=== PATIENT | female | born 1980 | race Caucasian/White ===

== ENCOUNTER → 2021-11-21 09:15 | Outpatient (CLI) | payer OTHER, SELFPAY ==
--- NOTE | ~2021-11-21 | MR_ITS ---
EXAMINATION: MR ankle LT wo con DATE: 11/21/2021 10:20 INDICATION: Left heel pain post plantar fasciotomy TECHNIQUE: Magnetic resonance imaging (MRI) of the left ankle was performed without intravenous contr ast. Sequences included sagittal, coronal, and axial proton-density weighted fast spin echo without a nd with fat saturation. COMPARISON: None. FINDINGS: Medial ankle ligaments: Deep and superficial deltoid ligaments as well as the spring ligament are normal. Lateral ankle ligaments: The anterior and posterior inferior tibiofibular ligaments are normal. The anterior talofibular, calc aneofibular and posterior talofibular ligaments are normal. Tendons: Achilles tendon is normal. The peroneus longus and brevis tendons are normal. The tibialis anterior a nd extensor hallucis longus and extensor digitorum longus tendons are normal. The tibialis posterior, flexor digitorum longus and flexor hallucis longus tendons are normal. Plantar fascia: There is prominent thickening of the central and lateral components of the plantar aponeurosis near t he calcaneal origin with linear likely postoperative scarring seen in the adjacent medial side of the plantar fat pad consistent with provided history of prior plantar fasciotomy. No significant surroun ding edema to suggest significant ongoing plantar fasciitis. Small plantar calcaneal spur. Bones/other: Bone alignment is normal. Bone island at the posterior tuberosity of the calcaneus. Marrow signal is normal with no reactive edema, fracture or pathologic marrow replacing process. Joint spaces are norm al. Raghavendra Tarsi and tarsal tunnel are unremarkable. Fluid: Physiologic amount of fluid in the joint spaces. IMPRESSION: 1. Thickening of the proximal plantar aponeurosis without significant surrounding edema consistent wi th chronic enthesopathy and/or scarring related to reported prior plantar fasciotomy. Reviewed, dictated and finalized at location A. [employer] IMPRESSION: 1. Thickening of the proximal plantar aponeurosis without significant surroundi ng edema consistent with chronic enthesopathy and/or scarring related to report ed prior plantar fasciotomy.
== END ==
PROVIDERS: Visit Provider Podiatrist Foot & Ankle Surgery
DX: M25.572 Pain in left ankle and joints of left foot (principal)
CPT/HCPCS: 73721

== ENCOUNTER 2022-08-24 12:52 | Emergency (ER) | payer OTHER, SELFPAY ==
[2022-08-24 13:05] VITALS: BP 107/71; PULSE 70; RESP 18; TEMP 36.2; O2SAT 99
--- NOTE | 2022-08-24 13:41 | ED.URI ---
HPI - URI/Sore Throat General Chief Complaint: Upper Respiratory Infection Stated Complaint: Sore Throat,Bilateral Ear Irritation,Congestion, Time Seen by Provider: 08/24/22 13:41 Source: patient and RN notes reviewed Mode of arrival: ambulatory Limitations: no limitations History of Present Illness HPI Narrative: 42 year female presenting for complaint of sore throat, bilateral ear pain, sinus congestion since yesterday. She endorses cough started about a week ago. She denies shortness of breath wheezing, vomiting diarrhea, fevers or chills. She endorses her children are sick. She has been taking Mucinex, Tylenol ibuprofen for symptoms without any relief. MD elicited complaint: cough Related Data Allergies Allergy/AdvReac Type Severity Reaction Status Date / Time Penicillins Allergy Unknown CHILD Unverified 11/27/14 10:53 Review of Systems Review of Systems: ROS per HPI Exam Narrative: GENERAL: Ill-appearing, nontoxic EYES: PERRLA, conjunctivae clear ENT: Mucous membranes moist. TMs pearly patterson with dull light reflex bilaterally; no tragal tenderness. Oropharynx erythematous without lesions or exudate, no drooling, no hoarseness, no trismus, uvula midline. CHEST: Clear to auscultation, breath sounds equal. HEART: Regular rate and rhythm. SKIN: Warm, dry, no rash. NEURO: Alert and oriented x3. PSYCH: Normal mood and affect Course Course Emergency Course: Patient is aware of diagnosis, understands and agrees to treatment plan. Anticipatory guidance given. Patient agrees to follow-up as directed and is aware of reasons to seek care at the emergency department. Portions of this record may have been created with voice recognition software Level of Care: Express Care Visit Vital Signs Vital signs: Vital Signs Temperature 97.2 F L 08/24/22 13:05 Pulse Rate 70 08/24/22 13:05 Respiratory Rate 18 08/24/22 13:05 Blood Pressure 107/71 08/24/22 13:05 Pulse Oximetry 99 08/24/22 13:05 Oxygen Delivery Room Air 08/24/22 13:05 Temperature 97.2 F L 08/24/22 13:05 Pulse Rate 70 08/24/22 13:05 Respiratory Rate 18 08/24/22 13:05 Blood Pressure 107/71 08/24/22 13:05 Pulse Oximetry 99 08/24/22 13:05 Oxygen Delivery Room Air 08/24/22 13:05 reviewed MDM - URI/Sore Throat MDM Narrative Medical decision making narrative: COVID, strep, flu negative. Results reviewed with patient. Advised supportive measures and signs/symptoms to go to the ER. Pt is appropriate for outpt treatment and f/u. Differential Diagnosis Differential diagnosis: Likely upper respiratory infection, sinusitis and viral infection Lab Data Labs: Influenza A Screen Negative Reference Range: Negative Influenza B Screen Negative Reference Range: Negative Strep Screen Presumptive Negative *(Reference Range: Negative)* Discharge Plan Discharge Clinical Impression: Upper respiratory infection Patient Disposition: Home, Self-Care Condition: Stable Instructions: Upper Respiratory Infection (ED) Additional Instructions: COVID and flu negative Rapid strep swab was negative today You will be notified in a few days if the culture comes back positive for strep, and appropriate antibiotics will be called in at that time. if symptoms are due to a viral illness, it is not treated with antibiotics. Viral symptoms can be present for up to 10-14 days. Recommend Flonase spray and Zyrtec for sinus congestion Cough syrup may cause drowsiness; avoid driving or take it at night time. Tylenol every 8 hours as needed for pain/fever Soft foods, cool liquids, warm tea. Gargle with warm saltwater twice a day. Chloraseptic spray and throat lozenges. Rest and stay hydrated. --Follow up with your PCP if symptoms are not improving, or
== END 2022-08-24 14:35 | disposition home or self-care (01) ==
PROVIDERS: Emergency Provider Nurse Practitioner Family
DX: J06.9 Acute upper respiratory infection, unspecified (principal); Z20.822 Contact with and (suspected) exposure to COVID-19
CPT/HCPCS: 87081; 87426; 87804; 87880; 99213; C9803; G0463

== ENCOUNTER 2023-09-17 13:17 | Emergency (ER) | payer OTHER, SELFPAY ==
[2023-09-17 13:50] VITALS: BP 93/53; PULSE 59; RESP 16; TEMP 36.2; O2SAT 100
--- NOTE | 2023-09-17 14:40 | ED.URI ---
HPI - URI/Sore Throat General Chief Complaint: Upper Respiratory Infection Stated Complaint: headache,congestion,cough Time Seen by Provider: 09/17/23 14:33 Source: patient and RN notes reviewed Mode of arrival: ambulatory Limitations: no limitations History of Present Illness HPI Narrative: 43-year-old female presented for complaint of cough, nasal congestion, headache, and onset 3 days. Denies shortness of breath, wheezing, nausea, vomiting or fever. Denies sick contacts. Taking Sudafed. MD elicited complaint: cough Related Data Home Medications Medication Instructions Recorded Confirmed dextroamphetamine-amphetamine ER 10 mg PO BID 09/17/23 09/17/23 10 mg 24hr capsule,extend release spironolactone 50 mg tablet 50 mg PO DAILY 09/17/23 09/17/23 Allergies Allergy/AdvReac Type Severity Reaction Status Date / Time Penicillins Allergy Unknown CHILD Verified 09/17/23 14:21 Review of Systems Review of Systems: CONSTITUTIONAL: Endorses malaise, denies chills, sweats, fever EYES: Denies visual changes, redness, or discharge ENT: Reports rhinorrhea, congestion, sore throat CARDIOVASCULAR: Denies chest pain, palpitations, edema RESPIRATORY: Reports cough, post nasal drainage. Denies dyspnea GASTROINTESTINAL: Denies abdominal pain, nausea, vomiting, diarrhea SKIN: Denies rash or itching MUSCULOSKELETAL: Denies myalgia NEUROLOGIC: Reports headache PMFSH Past Medical History Medical History (Updated 09/17/23 @ 15:01 by Pat Soares, INDIRA) Narcolepsy Exam Narrative: GENERAL: Mildly ill-appearing, nontoxic no acute distress. EYES: conjunctivae clear ENT: Mucous membranes moist. TMs pearly patterson with dull light reflex bilaterally; no tragal tenderness. Oropharynx mildly erythematous without lesions or exudate, no drooling, no hoarseness, no trismus, uvula midline. No tripod positioning, muffled voice, soft palate or pharyngeal wall bulging NECK: Supple. No lymphadenopathy CHEST: Clear to auscultation, breath sounds equal. No wheezing, rhonchi, rales, or stridor. No respiratory distress, speaks in full sentences. HEART: Regular rate and rhythm. No murmur heard. SKIN: Warm, dry NEURO: Alert and oriented x3. PSYCH: Normal mood and affect Course Course Emergency Course: Patient is aware of diagnosis, understands and agrees to treatment plan. Anticipatory guidance given. Patient agrees to follow-up as directed and is aware of reasons to seek care at the emergency department. Portions of this record may have been created with voice recognition software Level of Care: Express Care Visit Vital Signs Vital signs: Vital Signs Temperature 97.2 F L 09/17/23 13:50 Pulse Rate 59 L 09/17/23 13:50 Respiratory Rate 16 09/17/23 13:50 Blood Pressure 93/53 L 09/17/23 13:50 Pulse Oximetry 100 09/17/23 13:50 Oxygen Delivery Room Air 09/17/23 13:50 Temperature 97.2 F L 09/17/23 13:50 Pulse Rate 59 L 09/17/23 13:50 Respiratory Rate 16 09/17/23 13:50 Blood Pressure 93/53 L 09/17/23 13:50 Pulse Oximetry 100 09/17/23 13:50 Oxygen Delivery Room Air 09/17/23 13:50 reviewed MDM - URI/Sore Throat MDM Narrative Medical decision making narrative: Results of POS COVID, neg strep reviewed with patient. Discussed physical exam findings. Advised supportive measures and signs/symptoms to go to the ER. Pt is appropriate for outpt treatment and f/u. Differential Diagnosis Differential diagnosis: Likely upper respiratory infection, otitis media, sinusitis, viral infection, bronchitis, influenza and pharyngitis Lab Data Labs: Lab Results 09/17/23 Range/Units 14:40 POC SARS CoV-2 Ag Positive (Negative) Strep Screen Presumptive Negative *(Reference Range: Negative)* Discharge Plan Discharge Clinical Impression: COVID-19 Patient Disposition: Home, Self-Care Condition: Stable Instructions:
== END 2023-09-17 15:04 | disposition home or self-care (01) ==
PROVIDERS: Emergency Provider Nurse Practitioner Family
DX: U07.1 COVID-19 (principal); G47.419 Narcolepsy without cataplexy
CPT/HCPCS: 87081; 87426; 87880; 99213; C9803; G0463

== ENCOUNTER 2024-11-22 10:13 | Emergency (ER) | payer OTHER, SELFPAY ==
--- OUTSIDE RECORDS SUMMARY | 2024-11-22 10:17 | XMS_ITS | Continuity of Care Document ---
Author Organization [facility] Address [facility] [place] [address] Care Team Providers Care Nursery Hand Name Role Phone Juan Maurer MD Primary Care Provider [phone] Encounters Date Type Department Care Team Description 03/03/2023 Travel 03/03/2023 6:42 PM CDT - 03/03/2023 9:16 PM CDT Emergency [facility] Emergency Room [address] [place] [address] Lakeshia Kirby MD Back Pain Discharge Disposition: Home or Self Care (Routine Discharge) 07/25/2022 Travel 07/25/2022 8:53 AM CDT - 07/25/2022 9:45 AM CDT Emergency [facility] Emergency Room [id number] [place] [id number] Sherman Womack PA Sore Throat; Earache (bilateral) Discharge Disposition: Home or Self Care (Routine Discharge) 01/26/2021 Travel 01/26/2021 9:14 AM CDT - 01/26/2021 11:59 PM CDT Hospital Encounter [facility] [id number] [place] [phone] Nehemiah Duarte Jr., Sybil Donohue, PUMP SERVICER HELPER Plantar Fasciitis Discharge Disposition: Home or Self Care (Routine Discharge) 01/19/2021 Travel 01/19/2021 8:43 AM CDT - 01/19/2021 11:59 PM CDT Hospital Encounter [facility] [address] [place] [address] Adarsh Daurte Jr., Tg Samson, PT Plantar Fasciitis Discharge Disposition: Home or Self Care (Routine Discharge) 01/16/2021 Travel 01/16/2021 8:58 AM CDT - 01/16/2021 11:59 PM CDT Hospital Encounter [facility] [address] [place] [address] Adarsh Duarte Jr., Nehemiah Krishnamurthy Jr., BEE TENDER Abbey Torre, PUMP SERVICER HELPER Pain In Foot Discharge Disposition: Home or Self Care (Routine Discharge) 01/09/2021 Travel 01/09/2021 12:58 PM CDT - 01/09/2021 11:59 PM CDT Hospital Encounter [facility] [address] [place] [address] Isidro Duarte, Nehemiah Krishnamurthy, Tg Coto, PT Plantar Fasciitis Discharge Disposition: Home or Self Care (Routine Discharge) 01/05/2021 Travel 01/05/2021 9:15 AM CDT - 01/05/2021 11:59 PM CDT Hospital Encounter [facility] [address] [place] [address] Nehemiah Duarte Jr., Abbey Moore, PUMP SERVICER HELPER Ankle/foot Pain Discharge Disposition: Home or Self Care (Routine Discharge) 01/02/2021 Travel 01/02/2021 9:15 AM CDT - 01/02/2021 11:59 PM CDT Hospital Encounter [facility] [address] [place] [address] Nehemiah Duarte Jr., Tg Dalton, PT Plantar Fasciitis Discharge Disposition: Home or Self Care (Routine Discharge) 12/29/2020 Travel 12/29/2020 9:15 AM CDT - 12/29/2020 11:59 PM CDT Hospital Encounter [facility] [address] [place] [address] Nehemiah Duarte, Abbey Fuchs, PUMP SERVICER HELPER Ankle/foot Pain Discharge Disposition: Home or Self Care (Routine Discharge) 12/26/2020 Travel 12/26/2020 9:45 AM CDT - 12/26/2020 11:59 PM CDT Hospital Encounter [facility] [address] [place] [address] Nehemiah Duarte, Florence Burleson, PUMP SERVICER HELPER Plantar Fasciitis Discharge Disposition: Home or Self Care (Routine Discharge) 12/22/2020 Travel 12/22/2020 8:45 AM CDT - 12/22/2020 11:59 PM CDT Hospital Encounter [facility] [id number] [place] [address] Nehemiah Duarte, Sybil George, PUMP SERVICER HELPER Plantar Fasciitis Discharge Disposition: Home or Self Care (Routine Discharge) 12/19/2020 Travel 12/19/2020 8:39 AM CDT - 12/19/2020 11:59 PM CDT Hospital Encounter [facility] [id number] [place] [address] Nehemiah Duarte, Tg Coto, PT Plantar Fasciitis Discharge Disposition: Home or Self Care (Routine Discharge) 03/17/2020 Travel 03/17/2020 6:55 AM CDT - 03/17/2020 8:10 AM CDT Emergency [facility] Emergency Room [address] [place] [phone] Chelsie Day MD Ankle Injury (LEFT) Discharge Disposition: Home or Self Care (Routine Discharge) 01/07/2020 Travel 01/07/2020 4:00 PM CDT Office Visit [facility] [address] [place] [address] Kevin Shah MD Headache (fatigue body aches since last week); Fever (Saturday started with fever); Sore Throat (ulcers on throat) 01/07/2020 Telephone [facility] [address] [place] [address] Collin Wolfe MD Sore Throat (had headaches and chills Saturday. T101.1, took tylenol, has not had fever since. now has sore throat,feels like has sores in throat. ) 09/12/2014 Abstract [facility] Emergency Room [address] [place] [address] Anselmo Santana MD 12/12/2013 Abstract [facility] [address] [place] [address] Regine Ulloa MD 06/04/2013 Abstract [facility] Emergency Room [id number] [place] [address] Lenny Arizmendi MD 12/08/2011 Abstract [facility] [id number] [place] [address] Collin Ball MD 06/28/2011 Abstract [facility] 06/25/2011 Abstract [facility] [address] [address] [place] [phone] 04/20/2011 Abstract [facility] Emergency Room [address] [place] [address] Lenny Arizmendi MD Allergies Active Allergy Reactions Criticality Noted Date Comments Penicillins Rash Low 01/07/2020 Medications methylphenidate LA (RITALIN LA) 20 MG 24 hr capsule Take 2 capsules (40 mg total) by mouth every morning. Active Active Problems Problem Noted Date Diagnosed Date Plantar fasciitis 11/01/2020 Family History Medical History Relation Comments Cancer Father Relation Status Comments Father Social History Smoking Status as of 11/22/2024 Tobacco Use Types Packs/Day Years Used Date Smoking Tobacco: Never Assessed Sex and Gender Information Value Date Recorded Sex Assigned at Not on file Legal Sex Female 7:45 PM CDT Gender Identity Not on file Sexual Orientation Not on file Last Filed Vital Signs Vital Sign Reading Time Taken Comments Blood Pressure 110/66 03/03/2023 9:10 PM CDT Pulse 68 03/03/2023 9:10 PM CDT Temperature 36.7 C (98.1 F) 03/03/2023 9:10 PM CDT Respiratory Rate 16 03/03/2023 9:10 PM CDT Oxygen Saturation 97% 03/03/2023 9:10 PM CDT Inhaled Oxygen Concentration - - Weight 74.8 kg (165 lb) 03/03/2023 6:50 PM CDT Height 167.6 cm (5' 6 ) 03/03/2023 6:50 PM CDT Body Mass Index 26.63 03/03/2023 6:50 PM CDT Plan of Treatment Not on file Procedures Procedure Name Priority Date/Time Associated Diagnosis Comments URINE BACTERIA CULTURE Routine 03/03/2023 8:33 PM CDT URINALYSIS, AUTO, COMPLETE STAT 03/03/2023 8:[address] LUMB SPINE WO CON STAT 03/03/2023 8:02 PM CDT CORONAVIRUS (COVID-19) ANTIGEN DIRECT OPTICAL STAT 07/25/2022 9:26 AM CDT RAPID STREP A STAT 07/25/2022 9:06 AM CDT XR ANKLE LT 2V STAT 03/17/2020 7:31 AM CDT SPLINT APPLICATION Routine 03/17/2020 7: 26 AM CDT INFLUENZA A & B Routine 01/07/2020 Fever, unspecified fever cause RAPID STREP A Routine 01/07/2020 Sore throat Results * CULTURE URINE (03/03/2023 8:33 PM CDT) SPEC DESCRIPTION URINE CLEAN CATCH 03/03/2023 8:57 PM CDT [facility] SPECIAL REQUESTS NO SPECIAL REQUEST 03/03/2023 8:57 PM CDT [facility] CULTURE RESULT NO GROWTH 2 DAYS 03/06/2023 7:27 AM CDT [facility] URINE SPECIMEN OBTAINED BY CLEAN CATCH PROCEDURE / Unknown 03/03/2023 8:33 PM CDT 03/03/2023 8:57 PM CDT Lakeshia Kirby MD MICROBIOLOGY - [facility] [employer] Final Result [facility] [address] [place] [address], [place] [phone] [facility] [address] [place] [address], [place] [phone] * (ABNORMAL) URINALYSIS, AUTO, COMPLETE (03/03/2023 8:33 PM CDT) COLOR (U) YELLOW 03/03/2023 8:56 PM CDT [facility] TRANSPARENCY CLEAR 03/03/2023 8:56 PM CDT [facility] SPECIFIC GRAVITY (U) 1.010 1.000 - 1.030 03/03/2023 8:56 PM CDT [facility] U PH 6.5 5.0 - 9.0 03/03/2023 8:56 PM CDT [facility] LEUKOCYTES (U) NEGATIVE NEGATIVE 03/03/2023 8:56 PM CDT [facility] NITRITES NEGATIVE NEGATIVE 03/03/2023 8:56 PM CDT [facility] PROTEIN (U) TRACE(A) NEGATIVE 03/03/2023 8:56 PM CDT [facility] URINE GLUCOSE NEGATIVE NEGATIVE 03/03/2023 8:56 PM CDT [facility] KETONES MG/DL (U) NEGATIVE NEGATIVE 03/03/2023 8:56 PM CDT [facility] BILIRUBIN (U) NEGATIVE NEGATIVE 03/03/2023 8:56 PM CDT [facility] BLOOD (U) NEGATIVE NEGATIVE 03/03/2023 8:56 PM CDT [facility] WBC/HPF 5-10 0 - 5 /HPF 03/03/2023 8:56 PM CDT [facility] RBC/HPF NONE SEEN 0 - 5 /HPF 03/03/2023 8:56 PM CDT [facility] EPI/HPF FEW /HPF 03/03/2023 8:56 PM CDT [facility] CULTURE & SENSITIVITY INDICATED? SPECIMEN SETUP FOR CULTURE 03/03/2023 8:56 PM CDT [facility] CRYSTALS (U) FEW /HPF 03/03/2023 8:56 PM CDT [facility] Comment:AMORPHOUS MATERIAL URINE SPECIMEN OBTAINED BY CLEAN CATCH PROCEDURE / Unknown 03/03/2023 8:33 PM CDT Lakeshia Kirby MD URINE ORDERABLES Final Resu lt Performing Organization Address [facility]/State/ZIP Co de Phone Number [facility] [address] [place] [address], * CT LUMB SPINE WO CON (03/03/2023 8:02 PM CDT) Anatomical Region Laterality Modality Spine Computed Tomogra phy 03/03/2023 8:28 PM CDT Impressions 03/03/2023 8:35 PM CDT IMPRESSION: Mild spinal stenosis at L4-5. Referred By: Interpreted By: Gerson Rowell MD, 03/03/2023 8:28 PM Narrative 03/03/2023 8:35 PM CDT EXAM: CT LUMB SPINE WO CON DATE: 03/03/2023 COMPARISON: None INDICATION: Mid/low back pain starting today. No injury. TECHNIQUE: Noncontrast imaging A dose lowering technique was used for this procedure, which may include, but is not limited to, dose reduction technique, automated exposure control, iterative reconstruction, ALARA (As Low As Reasonably Achievable), or Image Gently techniques. FINDINGS: Normal vertebral body heights and alignment. Normal lordosis. L1-2: Small disc bulge. L2-3: Small disc bulge. L3-4: Small disc bulge. L4-5: Small disc bulge. Facet and ligamentum flavum hypertrophy. Mild spinal stenosis. L5-S1: Facet hypertrophy. Procedure Note Gerson Rowell MD - 03/03/2023 EXAM: CT LUMB SPINE WO CON DATE: 03/03/2023 COMPARISON: None INDICATION: Mid/low back pain starting today. No injury. TECHNIQUE: Noncontrast imaging A dose lowering technique was used for this procedure, which may include,but is not limited to, dose reduction technique, automated exposurecontrol, iterative reconstruction, ALARA (As Low As ReasonablyAchievable), or Image Gently techniques. FINDINGS: Normal vertebral body heights and alignment. Normal lordosis. L1-2: Small disc bulge. L2-3: Small disc bulge. L3-4: Small disc bulge. L4-5: Small disc bulge. Facet and ligamentum flavum hypertrophy. Mildspinal stenosis. L5-S1: Facet hypertrophy. IMPRESSION: Mild spinal stenosis at L4-5. Referred By: Interpreted By: Gerson Rowell MD, 03/03/2023 8:28 PM Lakeshia Kirby MD CT Final Resul t * CORONAVIRUS (COVID-19) ANTIGEN [RAPID IN HOUSE TEST] (07/25/2022 9:26 AM CDT) CORONAVIRUS ANTIGEN IA NEGATIVE NEGATIVE 07/25/2022 9:53 AM CDT [facility] Comment: NEGATIVE RESULTS DO NOT RULE OUT SARS-COV-2 INFECTION AND SHOULD NOT BE USED THE SOLE BASIS FOR TREATMENT OR PATIENT MANAGEMENT DECISIONS, INCLUDING INFECTION CONTROL DECISIONS. NEGATIVE RESULTS SHOULD BE CONSIDERED IN THE CONTEXT OF A PATIENT'S RECENT EXPOSURES, HISTORY AND THE PRESENCE OF CLINICAL SIGNS AND SYMPTOMS CONSISTENT WITH COVID 19. THIS TEST HAS BEEN AUTHORIZED BY THE FDA UNDER AN EMERGENCY USE AUTHORIZATION (EUA) FOR USE BY AUTHORIZED LABORATORIES. SPECIMEN TYPE NASAL 07/25/2022 9:25 AM CDT [facility] FIRST TEST NO 07/25/2022 9:25 AM CDT [facility] EMPLOYED IN HEALTHCARE NO 07/25/2022 9:25 AM CDT [facility] SYMPTOMATIC DEFINED BY CDC YES 07/25/2022 9:25 AM CDT [facility] DATE OF SYMPTOM ONSET 2022072507/25/2022 9:25 AM CDT [facility] HOSPITALIZATION STATUS NO 07/25/2022 9:25 AM CDT [facility] PATIENT IN ICU UNKNOWN 07/25/2022 9:37 AM CDT [facility] RESIDENT OF [facility] NO 07/25/2022 9:25 AM CDT [facility] NOT 07/25/2022 9:25 AM CDT [facility] NASAL NASAL STRUCTURE / Unknown 07/25/2022 9:26 AM CDT Sherman FLOOD MICROBIOLOGY - GENERAL [employer] Final Result [facility] [address] [place] [address], * RAPID STREP A (07/25/2022 9:06 AM CDT) Only the most recent of2 resultswithin the time period is included. [facility] RAPID STREP TEST NEGATIVE NEGATIVE 07/25/2022 9:17 AM CDT [facility] STRUCTURE OF ANTERIOR PORTION OF NECK / Unknown 07/25/2022 9:06 AM CDT Sherman FLOOD MICROBIOLOGY - GENERAL ORDE RABLES Final Result [facility] [address] [place] [address], [place] [phone] * XR ANKLE LT 2V (03/17/2020 7:31 AM CDT) Anatomical Region Laterality Modality Ankle Radiographic Maria A ging 03/17/2020 7:30 AM CDT Impressions 03/17/2020 7:30 AM CDT IMPRESSION: Normal ankle mortise. Posterior calcaneal spur. Osseous structures including the talar dome and base of fifth metatarsal are intact. No evidence of acute fracture, dislocation or radiopaque foreign body. Interpreted By: Gatito Schultz, 03/17/2020 7:30 AM Narrative 03/17/2020 7:30 AM CDT IMAGING STUDIES: XR ANKLE LT 2V EXAM DATE/TIME: 03/17/2020 7:21 AM INDICATION: twisted ankle . COMPARISON: No comparisons. TECHNIQUE: 2 views Procedure Note Gatito Schultz MD - 03/17/2020 IMAGING STUDIES: XR ANKLE LT 2V EXAM DATE/TIME: 03/17/2020 7:21 AM INDICATION: twisted ankle . COMPARISON: No comparisons. TECHNIQUE: 2 views IMPRESSION: Normal ankle mortise. Posterior calcaneal spur. Osseous structures including the talar dome and base of fifth metatarsal are intact. No evidence of acute fracture, dislocation or radiopaque foreign body. Interpreted By: Gatito Schultz, 03/17/2020 7:30 AM Chelsie Day MD GENERAL IMAGING Final Result * Splint Application (03/17/2020 7:26 AM CDT) Narrative Chelsie Day MD - 03/17/2020 7:26 AM CDT Chelsie Day MD 03/17/2020 8:08 AM Splint Application Date/Time: 03/17/2020 8:08 AM Performed by: Chelsie Day MD Authorized by: Chelsie Day MD Procedure details: Laterality: Left Location: Ankle Splint type: Ankle stirrup Supplies: Prefabricated splint Post-procedure details: Pain: Unchanged Sensation: Normal Skin color: [place] Patient tolerance of procedure: Tolerated well, no immediate complications Chelsie Day MD PROCEDURE/MINOR SURGICAL ORDE RABLES Final Result * INFLUENZA A & B (01/07/2020) INFULENZA A AB NEGATIVE NEGATIVE [address], IAN INFLUENZA B AB NEGATIVE NEGATIVE [address], IAN Internal Control: VALID VALID [address], I[place] NASOPHARYNGEAL SWAB / Unknown 01/07/2020 Kevin Shah MD MICROBIOLOGY - GENERAL ORDERA BLES Final Result [address], [place] [address] [place] [address], Visit Diagnoses Diagnosis Start Date Other specified noninflammatory disorder of vagina 04/20/2011 Other malaise and fatigue 12/08/2011 Sprain and strain of hip and thigh Sprain and strain of unspecified site of hip and thigh 06/04/2013 Missed (HHS/HCC) Missed 12/12/2013 Infection of genitourinary tract antepartum (HHS/HCC) Infections of genitourinary tract antepartum 09/12/2014 Fever, unspecified fever cause 01/07/2020 Sore throat Acute pharyngitis 01/07/2020 Strep throat Streptococcal sore throat 01/07/2020 Ankle sprain Sprain of ankle, unspecified site 03/17/2020 Plantar fasciitis Plantar fascial fibromatosis 12/19/2020 Plantar fasciitis Plantar fascial fibromatosis 12/22/2020 Plantar fasciitis Plantar fascial fibromatosis 12/26/2020 Plantar fasciitis Plantar fascial fibromatosis 12/29/2020 Plantar fasciitis Plantar fascial fibromatosis 01/02/2021 Plantar fasciitis Plantar fascial fibromatosis 01/05/2021 Plantar fasciitis Plantar fascial fibromatosis 01/09/2021 Plantar fasciitis Plantar fascial fibromatosis 01/16/2021 Plantar fasciitis Plantar fascial fibromatosis 01/19/2021 Plantar fasciitis Plantar fascial fibromatosis 01/26/2021 Viral URI Acute upper respiratory infections of unspecified site 07/25/2022 Acute midline low back pain without sciatica 03/03/2023 Care Teams Nursery Hand Relationship Specialty Start Date End Date Juan Maurer MD PCP - General FAMILY PRACTICE 03/17/20
--- OUTSIDE RECORDS SUMMARY | 2024-11-22 10:17 | XMS_ITS | Data Portability ---
Author Organization [facility], [address] [facility] ([facility]) Address [address] [place] [address] Care Team Providers Care Informatics Physician Liaison Name Role Phone CLEMENT, KASSY Primary Care Provider MARCOS ADAMS Referring Provider [phone] JEREMIAH MCCRAY Electric Meter Reader WILLIE MONTANEZ Healthcare Marketer Assessment Encounter Date Assessment Date Assessment LastModified by Organization Details LastModified Time 06/04/2024 06/04/2024 Lexii is here 2 weeks after right L4-5 microdiskectom y. She is doing really well after surgery. The pain down her right leg has completely resolved. No leftover numbness or tingling. She is taking only minimal pain medications at this point. She is very pleased with the results of her surgery. Her incision looks great today. [place] were removed. No redness, no drainage. We will see her back in another month for 6-week followup. She was reminded to avoid repetitive bending, twisting, or heavy lifting in the meantime. dpk [email or web address] Not available 06/04/2024 13:31:21 Plan of Treatment Reminders Order Date Submit Date Provider Last Modified By Organization Details Last Modified Time Details Appointments Establish ed Patient 20.EST 2024 08:40A M Karie Marcelo Not available Not available Not available Establish ed Patient 10.EST 2024 09:50A M Dr. Jeremiah Mccray Not available Not available Not available Annual Well Woman Visit 15.EST 2024 01:15P M Ashley Deluca Not available Not available Not available Lab None recorded. Referral None recorded. Procedures None recorded. Surgeries None recorded. Imaging MAMMO, screening , digital, bilateral 2023 024 [facility], [address] [place] [address], [id number], 08/21/2024 10:32:38 Medication Orders Adderall 10 mg tablet 2023 024 [id number], [address] [place], [place], [id number], 09/17/2024 09:30:09 Patient TargetsNo targets recorded. Patient InstructionsNo instructions recorded. Reason for Referral None Reported. Results Created Date Observation Date Name Description Value Unit Range Abnormal Flag Note LastModifiedBy Organization Detail LastModifiedTime 05/07/20 24 05/07/2024 CBC CBC Not Available [facility] [address] [place] [address], [id number], 05/07/2024 17:03:06 05/07/20 24 05/07/2024 CBC WBC 8.4 K/uL 3.8-11 .2 Not Available [facility] [address] [place] [address], [id number], 05/07/2024 17:03:06 05/07/20 24 05/07/2024 CBC RBC 4.33 M/uL 3.92-5 .10 Not Available [facility] [address] [place] [address], [id number], 05/07/2024 17:03:06 05/07/20 24 05/07/2024 CBC HGB 12.9 g/dL 11.8-1 5.3 Not Available [facility] [address] [place] [address], [id number], 05/07/2024 17:03:06 05/07/20 24 05/07/2024 CBC HCT 38.0 % 36.5-4 4.8 Not Available [facility] [address] [place] [address], [id number], 05/07/2024 17:03:06 05/07/20 24 05/07/2024 CBC MCV 87.8 fL 80.0-9 9.0 Not Available [facility] [address] [place] [address], [id number], 05/07/2024 17:03:06 05/07/20 24 05/07/2024 CBC MCH 29.8 pg 25.5-3 3.6 Not Available [facility] [address] [place] [address], [id number], 05/07/2024 17:03:06 05/07/20 24 05/07/2024 CBC MCHC 33.9 g/dL 32.0-3 6.0 Not Available [facility] [address] [place] [address], [id number], 05/07/2024 17:03:06 05/07/20 24 05/07/2024 CBC RDW-SD 40.7 fL 35.1 - 46.3 Not Available [facility] [address] [place] [address], [id number], 05/07/2024 17:03:06 05/07/20 24 05/07/2024 CBC plt 322 K/uL 130-40 0 Not Available [facility] [address] [place] [address], [id number], 05/07/2024 17:03:06 05/07/20 24 05/07/2024 CBC MPV 10.0 fL 9.3-12 .8 Not Available [facility] [address] [place] [address], [id number], 05/07/2024 17:03:06 05/07/20 24 05/07/2024 urina lysis compl ete, refle x cultu re urinalysis w/reflex cult LOW LEVEL S OF HEMOG LOBIN IN ABSEN CE OF HEMAT URIA MAY NOT BE CLIN[facility] SIGNI JOSE Mantilla Not Available [facility] [address] [place] [address], [id number], 05/07/2024 17:30:52 05/07/20 24 05/07/2024 urina lysis compl ete, refle x cultu re color YELLOW Not Available [facility] [address] [place] [address], [id number], 05/07/2024 17:30:52 05/07/20 24 05/07/2024 urina lysis compl ete, refle x cultu re clarity CLOUDY Not Available [facility] [address] [place] [address], [id number], 05/07/2024 17:30:52 05/07/20 24 05/07/2024 urina lysis compl ete, refle x cultu re pH 5.5 5.0-7. 5 Not Available [facility] [address] [place] [address], [id number], 05/07/2024 17:30:52 05/07/20 24 05/07/2024 urina lysis compl ete, refle x cultu re specific gravity 1.035 1.000- 1.030 high Not Available [facility] [address] [place] [address], [id number], 05/07/2024 17:30:52 05/07/20 24 05/07/2024 urina lysis compl ete, refle x cultu re blood TRACE negati ve abnormal Not Available [facility] [address] [place] [address], [id number], 05/07/2024 17:30:52 05/07/20 24 05/07/2024 urina lysis compl ete, refle x cultu re bilirubin NEGATI VE negati ve Not Available [facility] [address] [place] [address], [id number], 05/07/2024 17:30:52 05/07/20 24 05/07/2024 urina lysis compl ete, refle x cultu re urobilinogen 1.0 0.2-1. 0 Not Available [facility] [address] [place] [address], [id number], 05/07/2024 17:30:52 05/07/20 24 05/07/2024 urina lysis compl ete, refle x cultu re ketone NEGATI VE negati ve Not Available [facility] [address] [place] [address], [id number], 05/07/2024 17:30:52 05/07/20 24 05/07/2024 urina lysis compl ete, refle x cultu re glucose NEGATI VE negati ve Not Available [facility] [address] [place] [address], [id number], 05/07/2024 17:30:52 05/07/20 24 05/07/2024 urina lysis compl ete, refle x cultu re protein NEGATI VE negati ve Not Available [facility] [address] [place] [address], [id number], 05/07/2024 17:30:52 05/07/20 24 05/07/2024 urina lysis compl ete, refle x cultu re nitrite NEGATI VE negati ve Not Available [facility] [address] [place] [address], [id number], 05/07/2024 17:30:52 05/07/20 24 05/07/2024 urina lysis compl ete, refle x cultu re leukocytes NEGATI VE negati ve Not Available [facility] [address] [place] [address], [id number], 05/07/2024 17:30:52 05/07/20 24 05/07/2024 urina lysis compl ete, refle x cultu re review * Micro scopi c resul ts revie wed by Techn [facility]. Not Available [facility] [address] [place] [address], [id number], 05/07/2024 17:30:52 05/07/20 24 05/07/2024 urina lysis compl ete, refle x cultu re RBC 6-10 0-2/hp f abnormal Not Available [facility] [address] [place] [address], [id number], 05/07/2024 17:30:52 05/07/20 24 05/07/2024 urina lysis compl ete, refle x cultu re WBC 0-5 0-5/hp f Not Available [facility] [address] [place] [address], [id number], 05/07/2024 17:30:52 05/07/20 24 05/07/2024 urina lysis compl ete, refle x cultu re squamous epithelial 6-10 0-10/h pf Not Available [facility] [address] [place] [address], [id number], 05/07/2024 17:30:52 05/07/20 24 05/07/2024 urina lysis compl ete, refle x cultu re bacteria 1+ none abnormal Not Available [facility] [address] [place] [address], [id number], 05/07/2024 17:30:52 05/07/20 24 05/07/2024 urina lysis compl ete, refle x cultu re hyaline cast 0-2 0-2/lp f Not Available [facility] [address] [place] [address], [id number], 05/07/2024 17:30:52 05/07/20 24 05/07/2024 urina lysis compl ete, refle x cultu re calcium oxalate crystal PRESEN T absent abnormal Not Available [facility] [address] [place] [address], [id number], 05/07/2024 17:30:52 05/07/20 24 05/07/2024 CMP, serum or plasm a comp. met. panel Not Available [facility] [address] [place] [address], [id number], 05/07/2024 17:37:59 05/07/20 24 05/07/2024 CMP, serum or plasm a sodium 140 mmol/ L 136-14 6 Not Available [facility] [address] [place] [address], [id number], 05/07/2024 17:37:59 05/07/20 24 05/07/2024 CMP, serum or plasm a potassium 3.7 mmol/ L 3.5-5. 1 Not Available [facility] [address] [place] [address], [id number], 05/07/2024 17:37:59 05/07/20 24 05/07/2024 CMP, serum or plasm a chloride 105 mmol/ L 98-110 Not Available [facility] [address] [place] [address], [id number], 05/07/2024 17:37:59 05/07/20 24 05/07/2024 CMP, serum or plasm a CO2 28 mEq/L 20-32 Not Available [facility] [address] [place] [address], [id number], 05/07/2024 17:37:59 05/07/20 24 05/07/2024 CMP, serum or plasm a anion gap 11 mmol/ L 10-22 Not Available [facility] [address] [place] [address], [id number], 05/07/2024 17:37:59 05/07/20 24 05/07/2024 CMP, serum or plasm a glucose 128 mg/dL 70-100 high Not Available [facility] [address] [place] [address], [id number], 05/07/2024 17:37:59 05/07/20 24 05/07/2024 CMP, serum or plasm a calcium 9.8 mg/dL 8.4-10 .4 Not Available [facility] [address] [place] [address], [id number], 05/07/2024 17:37:59 05/07/20 24 05/07/2024 CMP, serum or plasm a total protein 7.1 g/dL 6.4-8. 3 Not Available [facility] [address] [place] [address], [id number], 05/07/2024 17:37:59 05/07/20 24 05/07/2024 CMP, serum or plasm a albumin 4.5 g/dL 3.5-5. 3 Not Available [facility] [address] [place] [address], [id number], 05/07/2024 17:37:59 05/07/20 24 05/07/2024 CMP, serum or plasm a ALP 72 U/L 44 - 127 Not Available [facility] [address] [place] [address], [id number], 05/07/2024 17:37:59 05/07/20 24 05/07/2024 CMP, serum or plasm a AST (SGOT) 13 U/L 10-40 Not Available [facility] [address] [place] [address], [id number], 05/07/2024 17:37:59 05/07/20 24 05/07/2024 CMP, serum or plasm a total bilirubin 0.6 mg/dL 0.2-1. 0 Not Available [facility] [address] [place] [address], [id number], 05/07/2024 17:37:59 05/07/20 24 05/07/2024 CMP, serum or plasm a ALT (SGPT) 17 U/L 8-35 Not Available [facility] [address] [place] [address], [id number], 05/07/2024 17:37:59 05/07/20 24 05/07/2024 CMP, serum or plasm a BUN 15 mg/dL 7-21 Not Available [facility] [address] [place] [address], [id number], 05/07/2024 17:37:59 05/07/20 24 05/07/2024 CMP, serum or plasm a creatinine 0.8 mg/dL 0.7-1. 3 Not Available [facility] [address] [place] [address], [id number], 05/07/2024 17:37:59 05/07/20 24 05/07/2024 CMP, serum or plasm a GFR(non-afri can swazi) 83 Not Available [facility] [address] [place] [address], [id number], 05/07/2024 17:37:59 05/07/20 24 05/07/2024 CMP, serum or plasm a GFR() 101 (FREIGHT BRAKE OPERATOR MARGARETTE KIDNE Y DISEA SE HAS A GFR LESS THAN 60 ML/ME N/1.7 3 MM FOR A PERIO D OF THREE MONTH S OR MORE. ) Not Available [facility] [address] [place] [address], [id number], 05/07/2024 17:37:59 05/18/20 24 05/18/2024 urina lysis compl ete, refle x cultu re urinalysis w/reflex cult LOW LEVEL S OF HEMOG LOBIN IN ABSEN CE OF HEMAT URIA MAY NOT BE CLINI L[facility]HER SIGNI FICAN T. Not Available [facility] [address] [place] [address], [id number], 05/18/2024 17:50:37 05/18/20 24 05/18/2024 urina lysis compl ete, refle x cultu re color YELLOW Not Available [facility] [address] [place] [address], [id number], 05/18/2024 17:50:37 05/18/20 24 05/18/2024 urina lysis compl ete, refle x cultu re clarity CLOUDY Not Available [facility] [address] [place] [address], [id number], 05/18/2024 17:50:37 05/18/20 24 05/18/2024 urina lysis compl ete, refle x cultu re pH 5.5 5.0-7. 5 Not Available [facility] [address] [place] [address], [id number], 05/18/2024 17:50:37 05/18/20 24 05/18/2024 urina lysis compl ete, refle x cultu re specific gravity 1.022 1.000- 1.030 Not Available [facility] [address] [place] [address], [id number], 05/18/2024 17:50:37 05/18/20 24 05/18/2024 urina lysis compl ete, refle x cultu re blood NEGATI VE negati ve Not Available [facility] [address] [place] [address], [id number], 05/18/2024 17:50:37 05/18/20 24 05/18/2024 urina lysis compl ete, refle x cultu re bilirubin NEGATI VE negati ve Not Available [facility] [address] [place] [address], [id number], 05/18/2024 17:50:37 05/18/20 24 05/18/2024 urina lysis compl ete, refle x cultu re urobilinogen 0.2 0.2-1. 0 Not Available [facility] [address] [place] [address], [id number], 05/18/2024 17:50:37 05/18/20 24 05/18/2024 urina lysis compl ete, refle x cultu re ketone NEGATI VE negati ve Not Available [facility] [address] [place] [address], [id number], 05/18/2024 17:50:37 05/18/20 24 05/18/2024 urina lysis compl ete, refle x cultu re glucose NEGATI VE negati ve Not Available [facility] [address] [place] [address], [id number], 05/18/2024 17:50:37 05/18/20 24 05/18/2024 urina lysis compl ete, refle x cultu re protein NEGATI VE negati ve Not Available [facility] [address] [place] [address], [id number], 05/18/2024 17:50:37 05/18/20 24 05/18/2024 urina lysis compl ete, refle x cultu re nitrite NEGATI VE negati ve Not Available [facility] [address] [place] [address], [id number], 05/18/2024 17:50:37 05/18/20 24 05/18/2024 urina lysis compl ete, refle x cultu re leukocytes NEGATI VE negati ve Not Available [facility] [address] [place] [address], [id number], 05/18/2024 17:50:37 05/18/20 24 05/18/2024 urina lysis compl ete, refle x cultu re review * Micro scopi c resul ts revie wed by [facility] Not Available [facility] [address] [place] [address], [id number], 05/18/2024 17:50:37 05/18/20 24 05/18/2024 urina lysis compl ete, refle x cultu re RBC 6-10 0-2/hp f abnormal Not Available [facility] [address] [place] [address], [id number], 05/18/2024 17:50:37 05/18/20 24 05/18/2024 urina lysis compl ete, refle x cultu re RBC. CONFI Cell count s confi rmed by Techn [facility]. Not Available [facility] [address] [place] [address], [id number], 05/18/2024 17:50:37 05/18/20 24 05/18/2024 urina lysis compl ete, refle x cultu re WBC 0-5 0-5/hp f Not Available [facility] [address] [place] [address], [id number], 05/18/2024 17:50:37 05/18/20 24 05/18/2024 urina lysis compl ete, refle x cultu re squamous epithelial 6-10 0-10/h pf Not Available [facility] [address] [place] [address], [id number], 05/18/2024 17:50:37 05/18/20 24 05/18/2024 urina lysis compl ete, refle x cultu re bacteria 1+ none abnormal Not Available [facility] [address] [place] [address], [id number], 05/18/2024 17:50:37 05/18/20 24 05/18/2024 urina lysis compl ete, refle x cultu re hyaline cast 0-2 0-2/lp f Not Available [facility] [address] [place] [address], [id number], 05/18/2024 17:50:37 04/24/20 24 04/22/2024 , [facility] [address] [place] [address] Ph: [phone] [email or web address] Adult Roberth rdiogr am Report Name: Lauren PACHECO Study Date: 2023 : 1979 5754 Gender : Female Age: 44 yrs Height : 67 in Weight : 165 lb BSA: 1.9 m2 Orderi ng Physic leila: Mccray, Muhamm ad Perfor med By: Jocelyne rodríguez [facility] Reason For Study: Mitral Regurg itatio n I34.0 Patien t Locati on: CARDIO LOGY BP: 114/74 mmHg Interp retati on Summar y Compar ed to the last echoca rdiogr am there is no signif icant change . Left ventri cular systol ic functi on is normal . Ejecti on Fracti on = 60-65% . The right ventri cular systol ic functi on is normal . There is mild mitral regurg itatio n. PROCED URE DETAIL S: A comple te transt horaci c echoca rdiogr am was perfor med (2D; M-mode ; spectr al and color flow Dopple r). The study was techni luther adequa te. LEFT VENTRI CECILIO: The left ventri cecilio is normal in size. The left ventri cular wall thickn ess as measur ed by 2D is normal . The left ventri cular mass index is normal when correc mike for BSA and gender . Left ventri cular systol ic functi on is normal . Ejecti on Fracti on = 60- 65%. The left ventri cular diasto lic fillin g patter n is normal for age. No region al wall motion abnorm alitie s noted. LEFT ATRIUM /ATRIA L SEPTUM : The left atrial volume index is normal by BSA and gender . No eviden ce for atrial shunti ng by color Dopple r. RIGHT ATRIUM : The right atrial volume index is normal when correc mike for BSA and gender . RIGHT VENTRI CECILIO: The right ventri cecilio is normal size. The right ventri cular systol ic functi on is normal . TAPSE is normal at 2.4 cm (> or =1.7cm is normal ). AORTIC VALVE: The aortic valve appear s trilea flet. The aortic valve opens well. There is no eviden ce of aortic stenos is. There is no aortic regurg itatio n noted. MITRAL VALVE: The mitral valve leafle ts are thin and pliabl e. There is no eviden ce of mitral valve prolap se. There is no mitral valve stenos is. There is mild mitral regurg itatio n. TRICUS PID VALVE: The tricus pid valve leafle ts are thin and pliabl e. There is no tricus pid stenos is. There is trace tricus pid regurg itatio n. Estima mike right atrial pressu re is 3 mmHg. Due to an incomp lete tricus pid regurg itatio n envelo pe the right ventri cular systol ic pressu re could not be estima mike. PULMON IC VALVE: The pulmon ic valve is not well visual ized. There is no pulmon ic valvul ar stenos is. There is trace pulmon ic valvul ar regurg itatio n. ARTERI ES: The sinus( es) of Valsal va measur es 2.7 cm which is within normal limits when correc mike for BSA and age. The ascend ing aorta measur es 2.9 cm, which is within normal limits when correc mike for BSA and gender . The transv erse aorta measur es normal at 2.7 cm. The descen ding aorta was not well visual ized. The pulmon presley artery is not well visual ized. VENOUS : The pulmon presley vein flow patter ns, as measur ed by Dopple r, sugges t diasto lic domina nce. The inferi or vena cava is normal in size, with normal respir atory variat ion. PERICA RDIUM/ PLEURA : There is no perica rdial effusi on seen. There is no pleura l effusi on. MMode/ 2D Measur ements IVSd: 1.0 cm LVPWd: 0.68 cm LVIDd: 4.9 cm LVIDs: 3.1 cm LV mass(C )d: 142.0 grams LV mass Index: 76.2 grams/ m2 Ao sinus of Valsal va diam: 2.7 cm Asc Ao: 2.9 cm Ao Arch Diam (Proxi mal trans. ): 2.7 cm RAd major (vol): 4.5 cm LVAd ap4: 32.0 cm2 LVLd ap4: 9.0 cm EDV(MO D-sp4) : 94.0 ml LVAs ap4: 17.7 cm2 LVLs ap4: 7.5 cm ESV(MO D-sp4) : 36.1 ml EF(MOD -sp4): 61.6 % LVAd ap2: 33.0 cm2 LVLd ap2: 9.0 cm EDV(MO D-sp2) : 101.4 ml LVAs ap2: 17.5 cm2 LVLs ap2: 7.3 cm ESV(MO D-sp2) : 35.1 ml EF(MOD -sp2): 65.3 % EDV(MO D-bp): 97.5 ml ESV(MO D-bp): 35.9 ml EF(MOD -bp): 63.2 % SV(MOD -bp): 61.6 ml SI(MOD -bp): 33.1 ml/m2 LA vol: 60.0 ml LA vol index: 32.2 ml/m2 EDV(MO D-bp) Index: 52.4 ml/m2 RA area: 15.1 cm2 RA Volume : 42.5 ml RA Volume Index: 22.8 ml/m2 RVd base: 3.9 cm Dopple r Measur ements MV E max dennise: 89.5 cm/sec MV A max dennise: 66.1 cm/sec MV E/A: 1.4 MV dec time: 0.26 sec MV dec slope: 350.8 cm/sec 2 AV max: 139.2 cm/sec Ao max P.8 mmHg LVOT max: 119.0 cm/sec LVOT max P.7 mmHg PV max: 99.7 cm/sec PV max P.0 mmHg ROSALINA (Dimen sionle ss Index) : 0.85 MV E': 12.3 cm/sec MV E/E' ratio: 7.3 Electr onical ly signed by:Tracey Mccray MD 2023 07:36 AM cc: Lauren Pacheco miranda 2023 US CARDIO LOGY ECHOCA RDIOGR AM INTERFACE [facility] [address] [place] [address], [id number], 04/24/2024 08:38:29 08/21/20 24 08/21/2024 MAMMO veda digit al, bilat eral [facility] [address] [address] Teleph one [phone] Name: LAUREN PACHECO MIRANDA [id number] am Date: 2023 Age: 44Phys ician: CIARAN HARRIS MD, WILLIE : 1979Ex aminat ion: MAMM BILATE RAL DIGITA L SCREEN ING EXAM: MAMM BILATE RAL DIGITA L SCREEN ING, MAMM SCREEN ING TOMOSY DEBORAH S ACCESS ION: [id number], [id number] EXAM DATE: 2023 9:15 AM HISTOR Y: This is a 44-yea r-old female . She presen ts for her screen ing mammog jeny with no breast compla ints. COMPAR BHANU: Prior studie s dating back to 04/14/20 21. DENSIT Y: The breast s are hetero geneou sly dense, which may obscur e small masses . FINDIN GS: 2D digita l compos ite views as well as 3D digita l tomosy nthesi s views were perfor med. There is an asymme try in the inferi or right breast . Additi onal imagin g is recomm ended. There are 2 masses identi fied within the left breast . An ultras ound exam is recomm ended. IMPRES ROBERTO: 1. An ultras ound exam is recomm ended for 2 left breast masses . 2. Additi onal imagin g is recomm ended for a right breast asymme try. ASSESS MENT: BI-RAD S 0: Incomp lete: Need additi onal imagin g evalua tion. ADDITI ONAL ASSESS MENT TEXT: The [facility] Radiol ogy depart ment will contac t the patien t to schedu le additi onal imagin g. RECOMM ENDATI ON: 1. Furthe r Imagin g Bilate ral. The patien t has been or will be contac mike with the result s of this exam. Electr onical ly signed in Arizmendi cribe by: CARINE BAHENA RES, MD on: 9:29 AM cc: Page PAGE 1 of [facility] SEN 1 [facility] [address] [place], [address], 08/21/2024 15:33:42 08/27/20 24 08/27/2024 US, arleen salmon, rosamaria white , limit ed [facility] [address] [address] Teleph iij [phone] Name: Lauren Pacheco [id number] am Date: 2023 Age: 44Phys ician: Ciaran harris MD, Willie : 1979Ex aminat ion: MAMM UNILAT DIGITA L DX RIGHT, US BREAST RIGHT LIMITE D, US BREAST LEFT LIMITE D EXAM: MAMM UNILAT DIGITA L DX RIGHT, Mamm Unilat DX Tomosy nthesi s, US BREAST RIGHT LIMITE D, US BREAST LEFT LIMITE D ACCESS ION: [id number], [id number], [id number], [id number] EXAM DATE: 2023 9:45 AM HISTOR Y: This is a 44-yea r-old female who is recall ed for a right breast asymme try and left breast masses . She has no curren t breast compla ints. COMPAR BHANU: Prior studie s dating back to 021 DENSIT Y: There are scatte red areas of fibrog landul ar densit y. FINDIN GS: 2D digita l compos ite views as well as 3D digita l tomosy nthesi s views were perfor med. Right breast : Follow ing additi onal imagin g there are small masses in the inferi or aspect of the right breast . Target ed sonogr aphic imagin g was perfor med. There are a few small cysts at the 8:00 positi on, 5 cm from the nipple measur ing up to 5 mm in size. Left breast : At the 11:30 positi on, 2 cm from the nipple there is a benign 9 mm cyst. At the 2:30 positi on, 3 cm from the nipple there are 2 adjace nt cysts spanni ng 1 cm. IMPRES ROBERTO: There are benign cysts in both breast s. The patien t will be due for her annual mammog jeny in 1 year.. ASSESS MENT: BI-RAD S 2: Benign findin g. RECOMM ENDATI ON: 1. Screen ing Mammog jeny Bilate ral in 1 year. The patien t has been or will be contac mike with the result s of this exam. Electr onical ly signed in Arizmendi cribe by: CARINE BAHENA RES, MD on: 11:22 AM cc: Page PAGE 1 of [facility] 1 [facility] [address], [place], [address], 08/28/2024 09:56:05 08/27/20 24 08/27/2024 US, breas t, unila teral , limit ed [address] [address] Teleph one [phone] Name: Lauren Pacheco [id number] am Date: 2023 Age: 44Phys ician: Ciaran harris MD, Willie : 1979Ex aminat ion: MAMM UNILAT DIGITA L DX RIGHT, US BREAST RIGHT LIMITE D, US BREAST LEFT LIMITE D EXAM: MAMM UNILAT DIGITA L DX RIGHT, Mamm Unilat DX Tomosy nthesi s, US BREAST RIGHT LIMITE D, US BREAST LEFT LIMITE D ACCESS ION: [id number], [id number], [id number] 62, [id number] EXAM DATE: 2023 9:45 AM HISTOR Y: This is a 44-yea r-old female who is recall ed for a right breast asymme try and left breast masses . She has no curren t breast compla ints. COMPAR BHANU: Prior studie s dating back to 021 DENSIT Y: There are scatte red areas of fibrog landul ar densit y. FINDIN GS: 2D digita l compos ite views as well as 3D digita l tomosy nthesi s views were perfor med. Right breast : Follow ing additi onal imagin g there are small masses in the inferi or aspect of the right breast . Target ed sonogr aphic imagin g was perfor med. There are a few small cysts at the 8:00 positi on, 5 cm from the nipple measur ing up to 5 mm in size. Left breast : At the 11:30 positi on, 2 cm from the nipple there is a benign 9 mm cyst. At the 2:30 positi on, 3 cm from the nipple there are 2 adjace nt cysts spanni ng 1 cm. IMPRES ROBERTO: There are benign cysts in both breast s. The patien t will be due for her annual mammog jeny in 1 year.. ASSESS MENT: BI-RAD S 2: Benign findin g. RECOMM ENDATI ON: 1. Screen ing Mammog jeny Bilate ral in 1 year. The patien t has been or will be contac mike with the result s of this exam. Electr onical ly signed in [employer] by: CARINE BAHENA RES, MD on: 11:22 AM cc: Page PAGE 1 of [facility] 1 [email or web address] Sc Only - [facility] Radiology [address] [place] [address], [id number], 09/02/2024 11:41:18 08/27/20 24 08/27/2024 MAMMO , diagn ostic , digit al, unila teral [address] [address] Teleph one [phone] Name: Lauren Pacheco [id number] am Date: 2023 Age: 44Phys ician: Ciaran harris MD, Willie : 1979Ex aminat ion: MAMM UNILAT DIGITA L DX RIGHT, US BREAST RIGHT LIMITE D, US BREAST LEFT LIMITE D EXAM: MAMM UNILAT DIGITA L DX RIGHT, Mamm Unilat DX Tomosy nthesi s, US BREAST RIGHT LIMITE D, US BREAST LEFT LIMITE D ACCESS ION: [id number], [id number] 61, [id number] 62, [id number] 63 EXAM DATE: 2023 9:45 AM HISTOR Y: This is a 44-yea r-old female who is recall ed for a right breast asymme try and left breast masses . She has no curren t breast compla ints. COMPAR BHANU: Prior studie s dating back to 021 DENSIT Y: There are scatte red areas of fibrog landul ar densit y. FINDIN GS: 2D digita l compos ite views as well as 3D digita l tomosy nthesi s views were perfor med. Right breast : Follow ing additi onal imagin g there are small masses in the inferi or aspect of the right breast . Target ed sonogr aphic imagin g was perfor med. There are a few small cysts at the 8:00 positi on, 5 cm from the nipple measur ing up to 5 mm in size. Left breast : At the 11:30 positi on, 2 cm from the nipple there is a benign 9 mm cyst. At the 2:30 positi on, 3 cm from the nipple there are 2 adjace nt cysts spanni ng 1 cm. IMPRES ROBERTO: There are benign cysts in both breast s. The patien t will be due for her annual mammog jeny in 1 year.. ASSESS MENT: BI-RAD S 2: Benign findin g. RECOMM ENDATI ON: 1. Screen ing Mammog jeny Bilate ral in 1 year. The patien t has been or will be contac mike with the result s of this exam. Electr onical ly signed in [facility] by: CARINE BAHENA RES, MD on: 4 11:22 AM cc: Page PAGE 1 of [facility] 1 dstehling Sc Only - [facility] Radiology [address] [place] [address], [id number], 08/28/2024 09:56:05 Result Notes None recorded. Problems Name Problem SNOMED Code Status Onset Date Resolution Date Notes Provider Name and Address Organization Details Recorded Time Microscopi c hematuria 696425527 Active 2023 Lanette Flaherty [facility] 4 17:31:18 Mammograph y abnormal 295265441 Active 2023 Ashley ahuja [facility], [facility] 4 12:42:32 Idiopathic hypersomni a 5254289549829 Active 2023 Karie Marcelo PA-C [address] [place] [address], [phone] , [facility] 4 12:38:23 Lumbar radiculopa thy 298008144 Active 2023 Marcos Adams MD [address] [place] [address], [phone] , [facility] 4 12:37:28 Chest pain 92622131 Active 2023 [place] [facility] 4 13:41:33 Fatigue 92022286 Active 2023 [place] [facility] 4 13:41:42 Mitral valve regurgitat ion 20690840 Active 2023 [place] [facility] 4 13:41:53 Hyperlipid emia 63915279 Active 2023 [place] [facility] 4 13:41:58 Dyslipidem ia 483002614 Active 2023 BESSY RECINOS NP [address] [place] [address], [phone] , [facility] 4 12:40:34 Problem Notes None recorded. Procedures Surgical History Date Name Laterality Status Provider Name and Address Organization Details Recorded Time 05/22/20 24 SC Operative Report completed Marcos Adams MD [address] [place] [address], [phone], [facility] 05/22/2024 10:25:51 05/22/20 24 lumbar microdiscectomy completed Lakia Peterson [facility] 05/25/2024 08:18:36 07/24/20 23 Date of Last Mammogram completed [facility] 07/10/2024 13:42:50 05/02/20 22 Date of Last Pap Smear completed [facility] 07/10/2024 13:42:20 06/28/20 21 fasciotomy of foot completed [facility] 07/10/2024 13:40:46 08/20/20 17 partial salpingectomy completed [facility] 07/10/2024 13:37:16 delivery completed Not Available Health Note 03/03/2024 20:23:59 Imaging Results Imaging Date Name Status LastModified by Organization Details LastModified Time 04/22/2024 US, echocardiogram completed [facility] [address] [place] [address], [id number], 04/24/2024 08:38:29 08/21/2024 MAMMO, screening, digital, bilateral completed dstehling [facility] Only - [facility] Radiology [address] [place] [address], [id number], 08/21/2024 15:33:42 08/27/2024 US, breast, unilateral, limited completed dstehling Sc Only - [facility] Radiology [address] [place] [address], [id number], 08/28/2024 09:56:05 08/27/2024 US, breast, unilateral, limited completed [email or web address] [facility] Only - [facility] Radiology [address] [place] [address], [id number], 09/02/2024 11:41:18 08/27/2024 MAMMO, diagnostic, digital, unilateral completed dstehling [facility] Only - [facility] Rad[facility] [address] [place] [address], [id number], 08/28/2024 09:56:05 Procedure Notes None recorded. Medical Equipment None Reported. Allergies Allergen ID Allergen Name Allergen Category Reaction Reaction Severity Criticality Documentation Date Start Date Code Code System Note Provider Name and Address Organization Details Recorded Time 171000 Product containin g penicilli n (product) medicatio n other Not available Not available 11/04/20232014 29545 8001 SNOMED React ion: Unkno wn to Patie nt; Comme nt: React ion Date: 06 Oct 2199 Annot ation s: JARRED ORTEGA Jul 2016 2:58P M react ion unkno wn to patie nt, this occur ed when she was a baby; ; Not Available Not Available Not Available Medications Name Sig Start Date Stop Date Status Note LastModified by Organization Details LastModified Time cyclobenzapr ine 10 mg tablet TAKE 1/2 TO 1 TABLET BY MOUTH AT BEDTIME NEEDED 03/12 completed Not Available Not Available Not Available prednisone 10 mg tablet 03/12 completed Not Available Not Available Not Available nabumetone 750 mg tablet TAKE 1 TABLET BY MOUTH TWICE DAILY WITH FOOD NEEDED 03/12 completed Not Available Not Available Not Available clindamycin HCl 300 mg capsule TAKE ONE CAPSULE BY MOUTH FOUR TIMES DAILY 07/30 completed Not Available Not Available Not Available methylphenid ate 10 mg tablet TAKE 1 TABLET BY MOUTH TWICE DAILY 04/15 completed Not Available Not Available Not Available hydrocodone 5 mg-acetamino phen 325 mg tablet TAKE 1 TO 2 TABLETS BY MOUTH EVERY 6 HOURS NEEDED FOR PAIN 07/30 completed Not Available Not Available Not Available clindamycin HCl 150 mg capsule 04/15 completed Not Available Not Available Not Available acetaminophe n 300 mg-codeine 30 mg tablet 1-2 tablets every 6 hours PRN pain 07/30 completed Not Available Not Available Not Available tramadol 50 mg tablet 1-2 tablets every 6 hours PRN pain 07/30 completed Not Available Not Available Not Available dextroamphet amine-amphet amine ER 10 mg 24hr capsule,exte nd release TAKE 1 CAPSULE BY MOUTH DAILY AT 8AM AND AT NOON 04/15 completed Not Available Not Available Not Available spironolacto ne 50 mg tablet TAKE 1 TABLET BY MOUTH DAILY 04/15 completed Not Available Not Available Not Available Adderall 10 mg tablet Take 1 tablet every day by oral route. 2023 active Not Available Not Available Not Avai lable Vitals Date Recorded Body height Heart rate Oxygen saturation Oxygen saturation in Arterial blood by Pulse oximetry Pain severity - 0-10 verbal numeric rating [Score] - Reported Provider Name and Address Organization Details Last Updated DateTime 06/04/2024 167.64 cm 72 /min 100 % 100 % 2 Barbra Scales [facility] 4 10:46:26 Date Recorded Body height Body mass index (BMI) Body weight Heart rate Oxygen saturation Oxygen saturation in Arterial blood by Pulse oximetry Pain severity - 0-10 verbal numeric rating [Score] - Reported Provider Name and Address Organization Details Last Updated DateTime 167.64 cm 28.1 kg/m2 79659.0 7 g 85 /min 100 % 100 % 5 Barbra Scales [facility] 4 11:26:27 Date Recorded Body height Body mass index (BMI) Body weight Systolic blood pressure Diastolic blood pressure Provider Name and Address Organization Details Last Updated DateTime 07/30/2024 167.64 cm 27.6 kg/m2 61001.3 g 110 mm[Hg] 70 mm[Hg] Eusebia Hamlin [facility] 4 11:57:19 Date Recorded Body height Body mass index (BMI) Body weight Heart rate Oxygen saturation Oxygen saturation in Arterial blood by Pulse oximetry Systolic blood pressure Diastolic blood pressure Provider Name and Address Organization Details Last Updated DateTime 4 167.64 cm 28 kg/m2 45354.6 4 g 78 /min 98 % 98 % 116 mm[Hg] 70 mm[Hg] Adalgisa Orosco [facility] 4 09:08:46 Social History Question Answer Notes LastModified by Organizat ion Details LastModified Time Tobacco Smoking Status Never Smoker Not Available Health Note 07/29/2024 12:04:50 Do You Have An Advance Directive? Yes [email or web address] Information not available 07/29/2024 What Is Your Level Of Alcohol Consumption? Occasional [email or web address] Information not available 07/29/2024 How Many Times Per Week Do You Consume Alcohol? Less Than 1 Time Per Week [email or web address] Information not available 07/29/2024 What Is Your Level Of Caffeine Consumption? Heavy [email or web address] Information not available 07/29/2024 What Is Your Code Status? DNR [email or web address] Information not available 07/29/2024 Are You Currently Employed? 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 Less Than 1 Time Per Week [email or web address] Information not available 07/29/2024 Do You Have A Medical Power Of Structural Architect? No [email or web address] Information not available 04/30/2024 What Was The Date Of Your Most Recent Tobacco Screening? 07/30/2024 [email or web address] Information not available 07/29/2024 How Many Children Do You Have? 2 [email or web address] Information not available 07/10/2024 What Is Your Relationship Status? Timbo Pacheco [email or web address] Information not available 07/29/2024 Do You Use Any Illicit Or Recreational Drugs? No [email or web address] Information not available 07/29/2024 Sex: Unknown Functional Status Question Answer Note LastModified by Organization D etails LastModified Time What is your exercise level? None [email or web address] Information not available 07/29/2024 Mental Status None recorded. Family History Relationship Description Onset Age of this Age Resolved Age Notes LastModified by Organization Details LastModified Time Mother Diabetes mellitus [email or web address] Not available 2023 20:23:58 Mother Family history of malignant neoplasm [email or web address] Not available 2023 13:48:49 Paternal Grandmother Hypertensive disorder [email or web address] Not available 2023 20:23:58 Paternal Grandmother Diabetes mellitus [email or web address] Not available 2023 12:11:41 Paternal Grandmother Family history of malignant neoplasm [email or web address] Not available 2023 13:48:49 Father Family history of malignant neoplasm [email or web address] Not available 2023 14:39:35 Father Hypertensive disorder [email or web address] Not available 2023 14:39:35 Maternal Grandfather Family history of malignant neoplasm [email or web address] Not available 2023 14:39:35 Medical History Condition Response Attention-deficit Hyperactivity Disorder N High Blood Pressure N Thyroid Problems N COPD N Depression Y Anemia N Diabetes Y Anxiety Disorder N Bleeding Disorder N Arthritis N Hyperlipidemia N Cancer N Stroke N Asthma N Seizures N Heart Disease N Fibromyalgia N Osteoporosis N Kidney Disease N Gynecological History Statement/Question Response Abnormal Pap N Date of Last Mammogram 07/24/2023 Date of LMP 07/20/2024 Sexually Active? N Menses Monthly Y Date of Last Pap Smear 05/02/2022 Age at Menarche 13 Current Control Method Sterilizati on LMP Definite Obstetrics History GPAL:G 3 P 2 0 1 2 Type Value Multiple Births 0 Full Term 2 Induced 1 Spontaneous 0 Premature 0 Living 2 Ectopics 0 Total 3 Immunizations Vaccine Type Date Status Note Provider Nam e and Address Organization Details Recorded Time Influenza, split virus, quadrivalent, preservative 2 completed Arianne Win [facility] 03/12/2024 09:56:40 Influenza, MDCK, quadrivalent, PF 3 completed [facility] 03/12/2024 09:56:40 MMR 5 completed [facility] 03/12/2024 09:56:40 COVID-19, mRNA, LNP-S, PF, 30 mcg/0.3 mL dose 1 completed [facility] 03/12/2024 09:56:40 COVID-19, mRNA, LNP-S, PF, 30 mcg/0.3 mL dose 1 completed [facility] 03/12/2024 09:56:40 COVID-19, mRNA, LNP-S, PF, 30 mcg/0.3 mL dose, zara-sucrose 2 completed [facility] 03/12/2024 09:56:40 Tdap 7 completed [facility] 03/12/2024 09:56:40 Influenza, split virus, trivalent, preservative 7 completed [facility] 03/12/2024 09:56:40 Influenza, split virus, trivalent, preservative 7 completed [facility] 03/12/2024 09:56:40 Influenza, split virus, trivalent, preservative 5 completed [facility] 03/12/2024 09:56:40 Influenza, split virus, quadrivalent, PF 0 completed [facility] 03/12/2024 09:56:40 Past Encounters Encounter ID Performer Location Encounter Start Date Encounter Closed Date Diagnosis/Indication Diagnosis SNOMED-CT Code Diagnosis ICD10 Code Diagnosis Note [id number] Marcos Adams MD [address] [place] [address] Orthopedi ([place]) [address] [place] [address],[address] [place] [address] 03/10/2024 12:00:08 03/10/2024 12:50:33 Lumbar radiculopathy 120761555 M54.16 [id number] Sarath Mayo MD [address] Pul ([place]) [address] [place], [place] [address] [place] [address] 03/12/2024 09:50:49 03/12/2024 10:06:23 Idiopathic hypersomnia 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 Will have patient return to office in 6 months. [id number] Jeremiah Mccray MD [address] [place] [address] Cardiolog y ([place]) [address] [place], [place] [address] [address] 04/15/2024 11:30:37 04/15/2024 12:38:40 Mitral valve regurgitation 35980403 I34.0 Dyslipidemia 556522581 E 78.5 Preoperati ve cardiovascular examination 350726671 Z01.186 [id number] Kassy Clement MD [address] ([place]) [address] [place] [address],[address] [place] [address] 05/07/2024 13:57:24 05/07/2024 16:16:39 Pre-surgery evaluation 080095755 Z01.818 Lumbar radiculopathy 128 261049 M54.16 [id number] [address] MD [facility] OR Anesthesi a ([place]) [address] [place] [address] 05/22/2024 07:32:01 06/02/2024 08:54:26 [id number] Marcos Adams MD [facility] Orthopedi ([place]) [address] [place] [address] [address] [place] [address] 05/22/2024 07:32:03 05/26/2024 11:58:27 Lumbar radiculopathy 076428596 M54.16 [id number] Jackie Flynn, SURFACE SUPERVISOR, EYEWEAR CONSULTANT [address] [place] [address] Orthopedi cs ([place]) [address] [place] [address],[address] [place] [address] 06/04/2024 10:33:21 06/04/2024 10:52:16 Postoperative visit 350336432 Z48.89 Surgical follow-up 83438 4000 Z48.02 Additional diagnosis detail: Encounter for staple removal [id number] Marcos Adams MD [address] Orth[address] [address] ([place]) [address] [place] [address] 07/02/2024 10:40:06 07/02/2024 11:42:35 Lumbar radiculopathy 185217892 M54.16 [id number] Ashley Deluca, SURFACE SUPERVISOR, DNP, EYEWEAR CONSULTANT [address] [facility] ([place]) [address] [place] [address] 07/30/2024 11:24:54 07/30/2024 12:30:37 Routine gynecologic examination 351631294 Z01.419 Additional diagnosis detail: Women's annual routine gynecologi trino examinatio n -- Pap screen: ACOG recommenda tions reviewed. Pap due 2026.-- Breast care: Clinical breast exam performed. Discussion of self breast awareness. Mammogram order provided and encouraged to schedule.- - Contracept ion: Status post tubal sterilizat ion.-- Vaccinatio ns: Tdap is up to date (2016).--B reast and ovarian cancer syndrome screening questionna stuart: No indication for referral.- -History of gestationa l diabetes and/or high blood pressure in : Follow up with PCP. Labs are up to date.-- Colonoscop y: Plan for at age 46.-- Partners and prevention sheet provided.- - The patient was encouraged to continue care with her primary care provider for the management of medical comorbidit ies and other health maintenanc e screening. Breast don plasm screening status 631027806 Z12.31 Additional diagnosis detail: Other screening mammogram [id number] Karie Marcelo PA-C [facility] ([place]) [address] [place] [address] 09/17/2024 08:54:27 09/17/2024 10:22:23 Idiopathic hypersomnia 1197816928 107 G47.11 Hypersomni a with good resolution on Adderall will send prescripti on to pharmacy. See patient back in 6 months. Health Concerns Section Related Observation LastModified by Organization Detai ls LastModified Time None Recorded Concern Status LastModified by Organization Details LastModified Time None Recorded Advance Directives Directive Y: Payers Encounter Date Sequence Insurance Name Policy Number Policy Valentine Covered Member ID Valentine Member ID Guarantor Name 05/22/2024 1 [facility] [employer] [id number] Lexii Chambers [place] [id number] OI Lexii Chambers [place] 06/04/2024 1 [facility] [employer] [id number] Lexii Chambers [place] [id number] OI Lexii Chambers [place] 07/02/2024 1 [facility] [employer] [id number] Lexii Chambers [place] [id number] OI Lexii Chambers [place] 07/30/2024 1 [facility] [employer] [id number] Lexii Chambers [place] [id number] OI Lexii Chambers [place] 09/17/2024 1 [facility] [employer] [id number] Lexii Chambers [place] [id number] OI Lexii Chambers [place] Notes Date Note Type Note Provider Name and Address Organization Details Recorded Time 4 text/html [facility] PRE-ANESTHETIC EVALUATIONReported bypatient.Reason for Visit:PROPOSED PROCEDURE: RIGHT LUMBAR MICRODISCECTOMY L4-5; SURGEON: Harvey; PREOP DIAGNOSIS: Radiculopathy, lumbar region Review of Systems General:Exercise tolerance good; Denies SOB, TITUS, PND; Denies chest pain or chest tightness Cardiac:No Hx of CAD; Hyperlipidemia; Mitral regurgitation Pulmonary:Respiratory system at baseline Neuro:Right LE Radiculopathy Pysch:Anxiety Prior Anesthetic Complication:no history of anesthesia complications Family Anesthetic Hx:no history of anesthesia complications Testing/ResultsEKG Date: 04/15/24 Result: (sinus rhythm possible left atrial enlargement low QRS voltage in precordial leads possible right ventricular conduction delay nonspecific T-wave abnormality); CBC Date: 05/07/24; HBG results: 12.9; HCT results: 38.0%; Platelets results: 322k; BMP/CMP Date: 05/07/24; BUN results: 15; Creatine results: 0.8; Potassium results: 3.7; Urine HCG: negative Physical Exam: AirwayMP II TeethLoose tooth (upper incisor) NeckFull range of motion CardiovascularRegular rate and rhythm RespiratoryClear to auscultation bilaterally; No wheeze noted GastrointestinalNPO status >6 hrs solids, >2 hrs clear liquids Vital Signs:Vital signs reviewed. Please refer to nursing preop note for values Assessment:ASA PS: II Plan:General Premed:Meclizine; Tylenol Discussion:I have discussed with the patient the anesthetic plan, alternatives, pertinent risks, and complications; including but not limited to PONV, dental injury, sore throat, ME, stroke, etc. All questions were answered. Patient verbalize(s) understanding and agree(s) to proceed. Ivan Price MD [address] [place] [address], [phone], [facility] 05/22/2024 08:48:39 4 text/html Annual GYNReported bypatient.History:no gynecologic complaints; obstetric history: G3T__P__A__L__ (P2); date of last Pap test (2021 -/-) Menstrual cycle:normal menses Urinary symptoms:no hematuria; no incontinence Vulva:no genital lesion Vagina:normal vaginal discharge Breast:no breast pain; no breast lump; no nipple discharge Current Contraception:satisfied with current contraception; tubal ligation Sexual complaints:no sexual complaints; no pain during intercourse; normal libido Menopausal Symptoms:no menopausal symptoms; normal vaginal lubrication Psychological symptoms:depression; PHQ = 10 Preventive measures:encourage self breast examination; encourage regular exercise; encourage no tobacco use; encourage regular mammograms starting age 40; needs to schedule mammogram Lexii is a patient of Dr. Montanez. Ashley Deluca, SURFACE SUPERVISOR, DNP, EYEWEAR CONSULTANT [address] [place] [address], [phone], [facility] 08/04/2024 11:17:23 4 text/html Patient is a 44-year-old female with a history of idiopathic hypersomnia returns office for 6-month follow-up. Patient is currently using Adderall 10 mg twice daily. Patient is using Adderall when she has to go into work. Feels medication is working well for her and she does drug holidays when she works from home. Denies side effects to the medication including increased heart rate, blood pressure or insomnia. Karie Marcelo PA-C [address] [place] [address], [phone], [facility] 09/17/2024 09:30:29 OBGyn Episode Ob Episode Information Episode Created Date Number of Fetuses Patient Bloodtype Patient rh Status Prepregnancy Weight lbs Domestic Partner Domestic Partner Phone Father Name Personal Support Worker Status 07/10/20 24 1 CLOSED Fetus Data First Name Last Name Admitted to NICU Weight (g) Sex Living Outcome Pediatric Complications Fetus ID Race Codes Race Delivery Type 4507.34 3704 F Full Term 11482 C/S ( Section) Ramiro Calculation Initial Ramiro Date Initial Exam Date Initial Exam Provider Initial Ultrasound Date Last Menstrual Period Date Ultra Sound Weeks Gestation 0 Eighteen To Twenty Week Ramiro Update Ultra Sound Date Fundal Height At Umbil Quickening Date Ultra Sound Latest Weeks Gestation Final Ramiro Confirmed By Final Ramiro Confirmed Date Final Ramiro Date Ultra Sound Latest Days Gestation 0 0 Menstrual History Last Menstrual Date Menses Monthly On Bcp Conception Prior Menses Frequency Hcg Plus Date Menarche Onset Age Delivery Information Delivery Date Delivery Type Labor Anesthesia Weeks Gestation Incision Type Labor Labor Length Hrs Delivered By Post Complications Tubal Sterilization Discharge Date Comments 7 [facility] ina 39.2 Discharge Information Feeding Method Contraceptive Method Maternal HG B and HCT Levels Ob Episode Information Episode Created Date Number of Fetuses Patient Bloodtype Patient rh Status Prepregnancy Weight lbs Domestic Partner Domestic Partner Phone Father Name Personal Support Worker Status 07/10/20 24 1 CLOSED Fetus Data First Name Last Name Admitted to NICU Weight (g) Sex Living Outcome Pediatric Complications Fetus ID Race Codes Race Delivery Type 3486.76 1704 M Full Term 85681 C/S ( Section) Ramiro Calculation Initial Ramiro Date Initial Exam Date Initial Exam Provider Initial Ultrasound Date Last Menstrual Period Date Ultra Sound Weeks Gestation 0 Eighteen To Twenty Week Ramiro Update Ultra Sound Date Fundal Height At Umbil Quickening Date Ultra Sound Latest Weeks Gestation Final Ramiro Confirmed By Final Ramiro Confirmed Date Final Ramiro Date Ultra Sound Latest Days Gestation 0 0 Menstrual History Last Menstrual Date Menses Monthly On Bcp Conception Prior Menses Frequency Hcg Plus Date Menarche Onset Age Delivery Information Delivery Date Delivery Type Labor Anesthesia Weeks Gestation Incision Type Labor Labor Length Hrs Delivered By Post Complications Tubal Sterilization Discharge Date Comments 5 [facility] idural 39.2 buffy [employer] Discharge Information Feeding Method Contraceptive Method Maternal HG B and HCT Levels Ob Episode Information Episode Created Date Number of Fetuses Patient Bloodtype Patient rh Status Prepregnancy Weight lbs Domestic Partner Domestic Partner Phone Father Name Personal Support Worker Status 07/10/20 24 1 CLOSED Fetus Data First Name Last Name Admitted to NICU Weight (g) Sex Living Outcome Pediatric Complications Fetus ID Race Codes Race Delivery Type [id number] Aborted - Induced Ramiro Calculation Initial Ramiro Date Initial Exam Date Initial Exam Provider Initial Ultrasound Date Last Menstrual Period Date Ultra Sound Weeks Gestation 0 Eighteen To Twenty Week Ramiro Update Ultra Sound Date Fundal Height At Umbil Quickening Date Ultra Sound Latest Weeks Gestation Final Ramiro Confirmed By Final Ramiro Confirmed Date Final Ramiro Date Ultra Sound Latest Days Gestation 0 0 Menstrual History Last Menstrual Date Menses Monthly On Bcp Conception Prior Menses Frequency Hcg Plus Date Menarche Onset Age Delivery Information Delivery Date Delivery Type Labor Anesthesia Weeks Gestation Incision Type Labor Labor Length Hrs Delivered By Post Complications Tubal Sterilization Discharge Date Comments 4 Discharge Information Feeding Method Contraceptive Method Maternal HG B and HCT Levels
[2024-11-22 10:46] VITALS: BP 112/56; PULSE 60; RESP 18; TEMP 36.4; O2SAT 100
--- NOTE | 2024-11-22 11:29 | ED.URI ---
HPI - URI/Sore Throat General Chief Complaint: Upper Respiratory Infection Stated Complaint: cough / LT Ear Pain / Sore throat Time Seen by Provider: 11/22/24 10:25 Source: patient Mode of arrival: ambulatory Limitations: no limitations History of Present Illness HPI Narrative: 44-year-old female presents to [facility] with complaints of fatigue, headache, low-grade fever, nonproductive cough, sinus pressure and sore throat for the past 3-4 days. Patient's daughter was recently ill with similar symptoms but had negative testing completed. Patient declines COVID or influenza testing at this time. Patient has been taking [id number] Motrin, Tylenol and Mucinex with little relief. Patient is a nonsmoker. Patient denies recent travel. MD elicited complaint: rhinorrhea and nasal congestion Onset (ago): day(s) (3) Able to tolerate fluids by mouth: Yes Exacerbating factors: nothing Relieving factors: nothing Context: sick contacts Treatments prior to arrival: acetaminophen and ibuprofen Related Data Home Medications ?Medication ?Instructions ?Recorded ?Confirmed ?Last Taken ?Type dextroamphetamine-amphetamine ER 10 mg PO BID 09/17/23 09/17/23 Unknown History 10 mg 24hr capsule,extend release Allergies Allergy/AdvReac Type Severity Reaction Status Date / Time Penicillins Allergy Unknown CHILD Verified 11/22/24 11:11 Review of Systems Constitutional: Constitutional: Denies chills, Reports fatigue, Reports fever(s) and Denies weakness ENT: Denies dysphagia, Denies vertigo, Denies dizziness, Denies epistaxis, Reports nasal congestion and Reports sore throat Cardiovascular: Cardiovascular: Denies chest pain Respiratory: Respiratory: Reports cough, Denies dyspnea and Denies wheezing Gastrointestinal: Gastrointestinal: Denies diarrhea, Denies nausea and Denies vomiting Genitourinary: Genitourinary: Denies dysuria Integumentary/Breasts: Skin/Breast: Denies erythema and Denies rash Neurologic: Denies dizziness, Denies syncope and Denies headache(s) PMFSH Past Medical History Medical History Narcolepsy Comments At time of signature, I agree with nursing past medical, surgical, social and family history. There is no relevant family history pertinent to the presenting complaint. Exam Const: General: healthy appearing and no acute distress Nutritional Appearance: well nourished Orientation/consciousness: patient oriented x3 Limitations: no limitations HENMT: Head: normal to inspection Ears: external ears normal and TM's normal bilaterally Face/Nose/Sinus: Nasal discharge present clear bilateral Face and sinus: normal facial exam and sinuses nontender Mouth: Yes Normal oral and palatal mucosa present, Yes lip normal and Yes moist mucous membranes Teeth and gingiva: dentition normal Throat: posterior oropharynx normal and uvula midline Other: Mild bilateral nasal congestion noted Eyes: Conjunctivae: conjunctivae normal Neck: Neck: normal visual inspection Resp: Effort & Inspection: normal respiratory effort and not labored Auscultation: clear to auscultation bilaterally, no crackles, no rales, no rhonchi and no wheezes Cardio: Rate: regular rate Rhythm: regular rhythm Heart sounds: no murmurs Skin: General skin exam: normal color Rashes: no rashes Neuro: General: patient oriented x3 and moves all extremities Speech: normal speech Gait exam (Neuro): Normal gait present Psych: Affect: normal affect Attitude: cooperative Course Course Level of Care: Express Care Visit Vital Signs Vital signs: Vital Signs Temperature 36.4 C 11/22/24 10:46 Pulse Rate 60 11/22/24 10:46 Respiratory Rate 18 11/22/24 10:46 Blood Pressure 112/56 L 11/22/24 10:46 Pulse Oximetry 100 11/22/24 10:46 Oxygen Delivery Room Air 11/22/24 10:46 Temperature 36.4 C 11/22/24 10:46 Pulse Rate 60 11/22/24 10:46 Respiratory Rate 18 11/22/24 10:46 Blood Pressure 112/56 L 11/22/24 10:46 Pulse Oximetry 100 11/22/24 10:46 Oxygen Delivery Room Air 11/22/24 10:46 MDM - URI/Sore Throat MDM Narrative Medical decision making narrative: Educated patient's symptoms are likely viral at this time. Patient agrees to take medications as prescribed. Patient agrees to follow-up with primary care provider if symptoms not improved. Educated patient to proceed to the emergency room if symptoms worsen. Patient declines COVID or influenza testing at this time Differential Diagnosis Differential diagnosis: Likely upper respiratory infection, otitis media and sinusitis Critical Care Time Critical Care Time Critical Care Time: No Discharge Plan Discharge Clinical Impression: Viral infection Patient Disposition: Home, Self-Care Condition: Stable Instructions: Viral Syndrome (ED) Additional Instructions: Rest Increase fluids Take Claritin Flonase daily Take cough medication as needed Take Medrol Dosepak as prescribed Follow-up with primary care provider if symptoms not improved Proceed to the emergency room if symptoms worsen Patient Language: Occitan Prescriptions: New loratadine [Claritin] 10 mg tablet 10 mg PO DAILY Qty: 30 0RF fluticasone propionate [Children's Flonase Allergy Rlf] 50 mcg/actuation spray,suspension 1 spray intranasal BID Qty: 16 0RF Rx Instructions: administer into each nostril benzonatate 100 mg capsule 100 mg PO BID PRN (Reason: cough) Qty: 20 0RF methylprednisolone [Medrol (Luis)] 4 mg tablets,dose pack See Rx Instructions .ROUTE .COMPLEX Qty: 21 0RF Rx Instructions: orally per package directions No Action dextroamphetamine-amphetamine 10 mg capsule,extended release 24hr 10 mg PO BID Follow-up/Referrals: PHYSICIAN,SPANISH LANGUAGE LECTURER [Primary Care Provider] - Stand Alone Forms: Work/School Release IP Time of Disposition: 11:34
== END 2024-11-22 11:37 | disposition home or self-care (01) ==
PROVIDERS: Emergency Provider Nurse Practitioner Family
DX: B34.9 Viral infection, unspecified (principal); G47.419 Narcolepsy without cataplexy
CPT/HCPCS: 99213; G0463